=== PATIENT | male | born 1985 | race Asian ===

== ENCOUNTER 2017-06-16 17:05 | Emergency (ER) | payer OTHER ==
[~2017-06-16] VITALS: Ht 177.8 cm; Wt 77.1 kg
--- NOTE | 2017-06-16 17:05 | NUR ---
1706- ATIVAN 2 MG IVP GIVEN 1710-IV SALINE LOCK 20 R WRIST 1716- TONIC CLONIC SZ 1717-10MG VECURONIUM IVP GIVEN 171-30MG ETOMIDATE IVP GIVEN 171-10MG VECURONIUM IVP GIVEN 171- ER MD VALIENTE 8.0 CM@24CM AT LIP
--- NOTE | 2017-06-16 17:05 | NUR ---
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
--- NOTE | 2017-06-16 17:05 | NUR ---
Patient being evaluated by DR. VALIENTE at bedside.
[2017-06-16] MEDS ORDERED: LORazepam 2 MG/ML VIAL ONE (17:15)
[2017-06-16] MEDS ORDERED: VECURONIUM 10 MG VIAL IVP ONE (17:25)
[2017-06-16] MEDS ORDERED: PHENYTOIN 1,000 MG in NACL 0.9% 100 ML IV ONE (17:25)
[2017-06-16] MEDS ORDERED: ETOMIDATE 20 MG/10 ML VIAL IVP ONE (17:25)
[2017-06-16] MEDS ORDERED: PROPOFOL 200 MG/20 ML VIAL IV ONE (17:25)
[2017-06-16] MEDS ORDERED: PROPOFOL 1000 MG/100 ML PREMIX 100 ML IV ONE ×3 (17:31→21:29)
[2017-06-16] MEDS ORDERED: VANCOMYCIN 1GM/DEXT 5% PREMIX 200 ML IV ONE (17:40)
[2017-06-16] MEDS ORDERED: cefTRIAXone 2,000 MG in DEXTROSE 5% 100 ML IV ONE (17:40)
[2017-06-16] MEDS ORDERED: VANCOMYCIN PER PHARMACY MC PRN (17:40)
--- NOTE | 2017-06-16 17:40 | NUR ---
PT IN STATUS EPILETICUS. DR. VALIENTE, RT, EMT, RN X2 AND XR AT BEDSIDE FOR RSI. INTUBATED 8.0 CUFFED AT 24CM AT THE LIP. MEDS GIVEN PER SEP.
--- NOTE | 2017-06-16 17:40 | NUR ---
PT RESTLESSNESS; DESTINY TRAORE SECHRIST BY BEDSIDE; INCREADSED propofol TO 10 MCG/KG/MIN Addendum: 06/16/17 at 1924 by JULIANNA Amendment undone in EDM - 06/16/17 at 1926 by JULIANNA Curtis PT RESTLESS, FIGHTING VENT; RASS=0; DESTINY VALIENTE BY BEDSIDE; INCREADSED propofol TO 10 MCG/KG/MIN
--- NOTE | 2017-06-16 17:40 | NUR ---
PT RESTLESS, FIGHTING VENT; RASS=0; ER SECHRIST BY BEDSIDE; INCREADSED propofol TO 10 MCG/KG/MIN
[2017-06-16 17:41] VITALS: BP 162/92
[2017-06-16 17:45] VITALS: BP 162/92
--- NOTE | 2017-06-16 17:45 | NUR ---
PT RESTLESS, FIGHTING VENT; RASS=0; ER SECHRIST BY BEDSIDE; INCREADSED propofol TO 20 MCG/KG/MIN
--- NOTE | 2017-06-16 17:50 | NUR ---
PT RESTLESS, FIGHTING VENT; RASS=0; ER SECHRIST BY BEDSIDE; INCREADSED propofol TO 20 MCG/KG/MIN
[2017-06-16 17:53] VITALS: BP 162/92
--- NOTE | 2017-06-16 17:55 | NUR ---
PT RESTLESS, FIGHTING VENT; RASS=0; ER MD SECHRIST BY BEDSIDE; INCREADSED propofol TO 65 MCG/KG/MIN PER ER MD SECHRIST VERBAL ORDER; VP=859/110 PULSE UX=942% HEART RATE=91 RR=30 RASS=0
[2017-06-16] MEDS ORDERED: PHENYTOIN 250 MG/5 ML VIAL IV ONE (18:10)
--- NOTE | 2017-06-16 18:10 | NUR ---
RASS=-2; ER SECHRIST BY BEDSIDE; PT TOLERATING VENT; NAD
--- NOTE | 2017-06-16 18:15 | NUR ---
tritiated propofol to 75 mcg/kg/min per er md sechrist verbal order
--- NOTE | 2017-06-16 18:17 | NUR ---
RASS=-3; PT TOLERATING VENT; NAD
--- NOTE | 2017-06-16 18:20 | NUR ---
RASS=-3; DESTINY TRAORE VERBAL GAVE ORDER TO TRANSPORT PT TO VENT; PT STABLE FOR TRANSPORT; NAD Addendum: 06/16/17 at 2013 by JULIANNA RASS=-3; DESTINY TRAORE VERBAL GAVE ORDER TO TRANSPORT PT TO CT; PT STABLE FOR TRANSPORT; NAD
--- NOTE | 2017-06-16 18:24 | NUR ---
PT TO CT [facility]IA [facility] STEEL RN AND JERROD DEAL ACCOMPANIED BY CORPORATE STRATEGY INTERN
[2017-06-16] MEDS ORDERED: MIDAZOLAM MDV 50 MG in NACL 0.9% 40 ML IV SCH (18:25)
[2017-06-16] MEDS ORDERED: MIDAZOLAM 2 MG/2 ML VIAL ONE (18:27)
--- NOTE | 2017-06-16 18:50 | NUR ---
PT RETURNED FROM [facility]IA [facility] WITH CHANTELL DEAL AND JERROD DEAL
--- NOTE | 2017-06-16 18:50 | NUR ---
PT tritiated propofol TO 65 MCG/KG/MIN; RASS=-3; NAD; WILL CONTINUE TO MONTIOR
[2017-06-16 18:54] LABS: PROTHROMBIN TIME 10.8 secs (10.8-13.4)
[2017-06-16 18:58] LABS: ACETAMINOPHEN < 0.5 ug/ml (10-30); ALBUMIN 3.6 g/dL (3.4-5.0); ANION GAP 13.1 (8-16); ASPARTATE AMINOTRANSFERASE 19 U/L (15-37); CARBON DIOXIDE 25.7 mmol/L (21-32); CHLORIDE 109 mmol/L (98-107); GFR ARICAN-AMERICAN 111 mL/min (>90); GLUCOSE 105 mg/dL (74-106); LIPASE 181 U/L (73-393); POTASSIUM 3.8 mmol/L (3.5-5.1); SODIUM SERUM 144 mmol/L (136-145); TOTAL BILIRUBIN 1.1 mg/dL (0.0-1.0); UREA NITROGEN, BLOOD 16 mg/dL (7-18)
[2017-06-16 19:05] LABS: EOSINOPHILS # (AUTO) 0.1 K/uL (0-0.4)
--- NOTE | 2017-06-16 19:05 | NUR ---
Note kalin in EDM - 06/16/17 at 1940 by ANDRADE Physician order given to place 2 POINT SOFT restraints to BILATERAL WRIST to prevent PULLING/REMOVAL OF TUBES, WIRES AND CATHETERS. Resraints placed with quick-release ties to bed frame. Pt under observation.
[2017-06-16 19:09] LABS: BILIRUBIN,URINE NEGATIVE (NEGATIVE); BLOOD, URINE TRACE-I (NEGATIVE); COLOR,URINE YELLOW (YELLOW); LEUKOCYTE ESTERASE ,URINE NEGATIVE (NEGATIVE); NITRITE, URINE NEGATIVE (NEGATIVE); UGLUCOSE NEGATIVE (NEGATIVE)
[2017-06-16 19:09] LABS: BASOPHILS # (AUTO) 0.4 K/uL (0.00-0.22); HEMATOCRIT 45.3 % (36-52); HEMOGLOBIN 15.6 g/dL (12.0-18.0); LYMPHOCYTES # (AUTO) 1.6 K/uL (2.0-11.5); MEAN CORPUSCULAR HEMOGLOBIN 30 pg (27-31); MEAN CORPUSCULAR HGB CONC 35 g/dL (33-37); MEAN CORPUSCULAR VOLUME 88 fL (80-94); PLATELET COUNT (AUTO) 197 K/uL (140-450); RED BLOOD CELL COUNT(AUTO) 5.18 MIL/uL (4.20-6.10); RED CELL DISTRIBUTION WIDTH 12.3 % (11.6-13.7); WHITE BLOOD COUNT (AUTO) 11.1 K/uL (4.8-10.8)
--- NOTE | 2017-06-16 19:10 | NUR ---
Oliver gagnon in EDM - 06/16/17 at 2018 by JULIANNA 2 POINTS SOFT RESTRAINED REMOVED; ER SECHRPAXTON GAVE VERBAL ORDER TO REMOVE RESTRAINTS; RASS=-3; NAD; VSS; WILL CONTINUE TO MONITOR
--- NOTE | 2017-06-16 19:10 | NUR ---
PT CLEANED AND REPOSITIONED. PT SUCTIONED. VS COMPLETE. FAMILY NOTIFIED FROM ED LOBBY, FAMILY NOT IN LOBBY, NO RESPONSE UPON CALL.
--- NOTE | 2017-06-16 19:11 | NUR ---
Pt report given to Alonso DEAL. Transfer of care at this time.
[2017-06-16 19:15] LABS: APPEARANCE,URINE SLIGHTLY HAZY (CLEAR)
[2017-06-16 19:16] LABS: RBC,URINE 3-10 (FEW) /HPF (0-5); URINE AMORPHOUS URATE 3+ /HPF (None Seen); WBC,URINE 0-5 (RARE) /HPF (0-5)
[2017-06-16 19:18] LABS: BARBITURATE, URINE NEG. ng/ml (NEG <=200); BENZODIAZEPINE, URINE POS. ng/mL (NEG <=200); CANNABINOID, URINE NEG. ng/mL (NEG <=50); COCAINE, URINE POS. ng/mL (NEG <=300); OPIATE, URINE NEG. ng/mL (NEG <=2000); PHENCYCLIDINE SCREEN,URINE NEG. ng/mL (NEG <=25)
--- NOTE | 2017-06-16 19:20 | NUR ---
Physician order given to place 2 POINT SOFT restraints to BILATERAL WRIST to prevent PULLING/REMOVAL OF TUBES, WIRES AND CATHETERS. Resraints placed with quick-release ties to bed frame. Pt under observation.
--- NOTE | 2017-06-16 19:30 | NUR ---
2 POINTS SOFT RESTRAINED REMOVED; ER SECHRIST GAVE VERBAL ORDER TO REMOVE RESTRAINTS; RASS=-3; NAD; VSS; WILL CONTINUE TO MONITOR
--- NOTE | 2017-06-16 20:30 | NUR ---
Pt resting on vent. Mother at bedside. No sz activity noted at this time.
[2017-06-16 21:05] VITALS: BP 108/66
--- NOTE | 2017-06-16 21:30 | NUR ---
Pt deeply sedated. Decreased Propofol.
--- NOTE | 2017-06-16 22:04 | NUR ---
ADVANCED ENDOTRACHEAL TUBE 3CM TO 27CM.
--- NOTE | 2017-06-16 23:00 | NUR ---
Pt suddenly bucking the vent and very strong gag response. Increased propofol back up to 30 mcg/kg/min.
[2017-06-16 23:06] VITALS: BP 106/66
[2017-06-17] MEDS ORDERED: PROPOFOL 1000 MG/100 ML PREMIX 100 ML IV ONE
--- NOTE | 2017-06-17 | NUR ---
No change in condition. Sedated on propofol. at bedside. No changes.
[2017-06-17 01:43] VITALS: BP 107/68
[2017-06-17 02:05] VITALS: BP 92/55
--- NOTE | 2017-06-17 02:05 | NUR ---
Patient to be transferred to [facility]. Is being transferred due to Insurance request. Receiving facility has accepting physician and available space. ER physician has signed transfer form. Patient or responsible democrat has agreed to transfer and signed form. Patient belongings inventoried and will be sent with . Copy of nursing notes, lab reports, EKG, Physicians Orders and X-rays to be sent with patient. Report called to SAY Potter at receiving facility. [facility] ambulance service has been called for transfer. ETA is now.
--- NOTE | 2017-06-17 02:06 | NUR ---
[facility] TO [facility] TO ROOM 230
== END 2017-06-17 02:06 | disposition short-term general hospital (02) ==
LOC: MED 17:05
DX: G40.901 Epilepsy, unspecified, not intractable, with status epilepticus (principal); J96.00 Acute respiratory failure, unspecified whether with hypoxia or hypercapnia; F14.90 Cocaine use, unspecified, uncomplicated; I48.91 Unspecified atrial fibrillation
CPT/HCPCS: 31500; 36415; 36600; 51702; 70450; 71010; 80053; 80305; 81001; 82140; 82550; 82803; 82948; 83605; 83690; 85025; 85610; 85730; 87086; 93005; 96365; 96366; 96368; 96375; 99291; G0480; G0482; J0696; J1165; J2060; J2250; J2704; J3370; J3490; J7060; Q0092

== ENCOUNTER 2018-11-01 22:47 | Emergency (ER) | payer BC, OTHER ==
[~2018-11-01] VITALS: Ht 188 cm; Wt 81.6 kg
[2018-11-01 22:52] VITALS: BP 148/104
--- NOTE | 2018-11-01 23:00 | NUR ---
PT AMBULATED TO BED 2
--- NOTE | 2018-11-01 23:14 | NUR ---
C/O FEELING AN AURA FOR SEIZURE WHILE DRIVING. REPORTS MILD SOB AND ANXIETY. REPORTS DRINKING 5 BEERS TONIGHT. PATIENT ACTING ALTERED AND ANXIOUS, DELAY IN ANSWER TO QUESTIONS AND FIGITING. DENIES DRUG USE.
--- NOTE | 2018-11-01 23:15 | NUR ---
RECEIVED CALL FROM PT'S WIN WITH PT'S PERMISSION , STATED PT HAS HX OF EPILEPSY (LAST SEIZURE 2 WEEKS AGO), CARDIAC ARREST (2013), HTN, HEPATIC FAILURE, TIA (1 MONTH AGO); RX MEDS DEPAKOTE, XARELTO, AND ATENOLOL
--- NOTE | 2018-11-01 23:15 | NUR ---
DR PERES MADE AWARE OF PATIENT CONDITION. URINE COLLECTED.
[2018-11-01] MEDS ORDERED: LORazepam 2 MG/ML VIAL IVP ONE ×2 (23:30→23:40)
[2018-11-01] MEDS ORDERED: LORazepam 2 MG/ML VIAL ONE (23:34)
--- NOTE | 2018-11-01 23:50 | NUR ---
DR PERES AT BEDSIDE WHEN PATIENT STARTED SEIZURE LIKE ACTIVITY. [id number] PATIENT HAD 30 SECOND SEIZURE LIKE ACTIVITY. 2341 PATIENT HAD 28 SECOND SEIZURE LIKE ACTIVITY. 2348 PATIENT HAD 30 SECOND SEIZURE LIKKE ACTIVITY. PATEINT CLOSELY MONITORED, ATIVAN GIVEN, ANSWERING QUESTIONS AAO.
[2018-11-01] MEDS ORDERED: LORazepam 2 MG/ML VIAL IM ONE (23:55)
[2018-11-02 00:06] LABS: BASOPHILS % (AUTO) 0.4 % (0.0-2.0); EOSINOPHILS # (AUTO) 0.1 K/uL (0-0.4); EOSINOPHILS % (AUTO) 0.8 % (0.0-4.0); HEMATOCRIT 45.1 % (36-52); HEMOGLOBIN 15.2 g/dL (12.0-18.0); LYMPHOCYTES % (AUTO) 24.8 % (20.5-51.1); MEAN CORPUSCULAR HEMOGLOBIN 30 pg (27-31); MEAN CORPUSCULAR HGB CONC 34 g/dL (33-37); MEAN CORPUSCULAR VOLUME 88.4 fL (80-94); MONOCYTES # (AUTO) 0.7 K/uL (0.8-1.0); MONOCYTES % (AUTO) 8.2 % (1.7-9.3); NEUTROPHILS # (AUTO) 5.3 K/uL (1.8-7.7); NEUTROPHILS % (AUTO) 65.8 % (42.2-75.2); PLATELET COUNT (AUTO) 251 K/uL (140-450); RED CELL DISTRIBUTION WIDTH 13.3 % (11.6-13.7); WHITE BLOOD COUNT (AUTO) 8.1 K/uL (4.8-10.8)
[2018-11-02 00:15] LABS: BARBITURATE, URINE NEG. ng/ml (NEG <=200); BENZODIAZEPINE, URINE NEG. ng/mL (NEG <=200); CANNABINOID, URINE NEG. ng/mL (NEG <=50); OPIATE, URINE NEG. ng/mL (NEG <=2000); PHENCYCLIDINE SCREEN,URINE NEG. ng/mL (NEG <=25)
--- NOTE | 2018-11-02 00:19 | NUR ---
PT TO CT AT THIS TIME
[2018-11-02 00:35] LABS: PROTHROMBIN TIME 9.6 secs (10.8-13.4)
[2018-11-02 00:36] LABS: CARBON DIOXIDE 19.4 mmol/L (21-32); CHLORIDE 108 mmol/L (98-107); GFR ARICAN-AMERICAN 111 mL/min (>90); GLUCOSE 89 mg/dL (74-106); POTASSIUM 3.4 mmol/L (3.5-5.1); SODIUM SERUM 144 mmol/L (136-145); UREA NITROGEN, BLOOD 13 mg/dL (7-18)
[2018-11-02 00:42] LABS: ALBUMIN 3.6 g/dL (3.4-5.0); ASPARTATE AMINOTRANSFERASE 13 U/L (15-37); TOTAL BILIRUBIN 0.2 mg/dL (0.0-1.0)
[2018-11-02 00:44] LABS: COCAINE, URINE NEGATIVE ng/mL (NEG <=300)
[2018-11-02 00:44] LABS: ACETAMINOPHEN < 0.5 ug/ml (10-30); SALICYLATE < 2.8 mg/dL (2.8-20.0)
[2018-11-02] MEDS ORDERED: VALPROATE SODIUM 500 MG in NACL 0.9% 100 ML IV ONE (00:50)
[2018-11-02] MEDS ORDERED: VALPROATE SODIUM 500 MG/5 ML VIAL IV ONE (01:09)
--- NOTE | 2018-11-02 03:01 | NUR ---
PATIENT SLEEPING, AROUSABLE TO VOICE, NOT ABLE TO STAY AWAKE TO ANSWER QUESTIONS. VSS. DR PERES MADE AWARE.
--- NOTE | 2018-11-02 04:00 | NUR ---
PATIENT AROUSABLE TO NAME, UNABLE TO STAY AWAKE FOR LONG ENOUGH TO ANSWER QUESTIONS. DR PERES MADE AWARE.
--- NOTE | 2018-11-02 04:11 | NUR ---
MESSAGE LEFT WITH PATEINTS , BRIAN AT NUMBER LISTED IN CHART, REGARDING PATIENT NEEDING A RIDE.
--- NOTE | 2018-11-02 04:39 | NUR ---
spoke with patients , stated she was currently out of the country, provided me with number for his mother Chelita, #[phone], spoke with her and she stated she would come pick him up.
[2018-11-02 05:13] VITALS: BP 102/73
--- NOTE | 2018-11-02 05:14 | NUR ---
Patient discharged with v/s stable. Written and verbal after care instructions given and explained. Patient verbalized understanding. Ambulatory with steady gait. All questions addressed prior to discharge. Advised to follow up with PMD.
== END 2018-11-02 05:13 | disposition home or self-care (01) ==
LOC: MED 22:47
DX: G40.909 Epilepsy, unspecified, not intractable, without status epilepticus (principal); F10.129 Alcohol abuse with intoxication, unspecified
CPT/HCPCS: 36415; 70450; 80053; 80305; 85025; 85610; 96361; 96372; 96374; 99284; G0480; G0482; J2060; J3490

== ENCOUNTER 2019-08-01 16:35 | Emergency (ER) | payer BC, MEDICAID ==
[~2019-08-01] VITALS: Ht 185.4 cm; Wt 80.3 kg
[2019-08-01 16:55] VITALS: BP 178/122
[2019-08-01] MEDS ORDERED: fentaNYL 0.05 MG/ML VIAL IM ONE (17:20)
--- NOTE | 2019-08-01 17:30 | NUR ---
C/O L ELBOW PAIN/DISLOCATION TODAY WHILE SKATEBOARDING. PT HAS REFERRAL AND CD FROM URGENT CARE FOR REDUCTION. OBVIOUS DEFORMITY TO LUE. LUE CLAMMY/COOL TO TOUCH. CMS INTACT BUT PT DOES REPORT MILD NUMBNESS/TINGLING HX: AFIB, EPILEPSY, RENAL DISEASE, CVA RX: DEPAKOTE ER, ATENOLOL. DENIES N/V/D; SKIN IS PINK/WARM/DRY; AAOX4 WITH EVEN AND STEADY GAIT; LUNGS CLEAR BL; HR EVEN AND REGULAR; PT DENIES ANY FEVER, CP, SOB, OR COUGH AT THIS TIME; PATIENT STATES PAIN OF 10/10 AT THIS TIME; VSS; PATIENT POSITIONED FOR COMFORT; HOB ELEVATED; BEDRAILS UP X2; BED DOWN. ER MD MADE AWARE OF PT STATUS.FRIEND AT BEDSIDE.
[2019-08-01] MEDS ORDERED: fentaNYL 0.05 MG/ML VIAL IVP ONE (18:25)
--- NOTE | 2019-08-01 18:30 | NUR ---
TRIED TWO TIMES TO INSERT IV. PT IS HARD STICK. CALLED CHARGE NURSE
--- NOTE | 2019-08-01 19:07 | NUR ---
ENDORSED TO PM SHIFT SAY BERNAL.
[2019-08-01] MEDS ORDERED: KETAMINE 10 MG/ML UD SYR **ER IVP ONE (20:10)
[2019-08-01] MEDS ORDERED: MORPHINE SULFATE 4 MG/ML SYR IVP ONE (22:10)
[2019-08-01] MEDS ORDERED: KETOROLAC 30 MG/ML VIAL IVP ONE (22:10)
--- NOTE | 2019-08-01 22:30 | NUR ---
POSTERIOR LONG ARM SPLINT PLACED ON PT L ARM, WRAPPED WITH JO WRAP. SLING PLACED ON PT L ARM, FITTED TO PT SIZE. +CSM
[2019-08-01 22:45] VITALS: BP 158/108
--- NOTE | 2019-08-01 22:45 | NUR ---
PT DISCHARGED WITH PAPERWORK. EDUCATED PT REGARDING MEDICATIONS, D/C INSTRUCTIONS AND DIAGNOSIS. PT VERBALIZED UNDERSTANDING OF TEACHING. TOLD PT TO FOLLOW UP WITH PCP AND WHEN TO RETURN TO ED. PT AT STABLE CONDITION. ALL QUESTIONS ANSWERED.
[2019-08-01 23:28] LABS: BARBITURATE, URINE NEG. ng/ml (NEG <=200); BENZODIAZEPINE, URINE NEG. ng/mL (NEG <=200); CANNABINOID, URINE NEG. ng/mL (NEG <=50); COCAINE, URINE NEG. ng/mL (NEG <=300); OPIATE, URINE NEG. ng/mL (NEG <=2000); PHENCYCLIDINE SCREEN,URINE NEG. ng/mL (NEG <=25)
== END 2019-08-01 22:45 | disposition home or self-care (01) ==
LOC: MED 16:35
DX: S52.122A Displaced fracture of head of left radius, initial encounter for closed fracture (principal); G40.909 Epilepsy, unspecified, not intractable, without status epilepticus; F12.90 Cannabis use, unspecified, uncomplicated; Z86.73 Personal history of transient ischemic attack (TIA), and cerebral infarction without residual deficits; V00.131A Fall from skateboard, initial encounter; Y93.51 Activity, roller skating (inline) and skateboarding; Y92.89 Other specified places as the place of occurrence of the external cause; Y99.8 Other external cause status
CPT/HCPCS: 29105; 73070; 80305; 96372; 96374; 96375; 99284; J1885; J2270; J3010